=== PATIENT | female | born 1995 | race African-American/Black ===

== ENCOUNTER 2016-05-17 13:42 | Emergency (ER) | payer OTHER ==
--- NOTE | 2016-05-17 14:35 | PD ---
HPI Travel History International Travel<30 Days: No Contact w/Intl Traveler<30Days: No Known Affected Area: No History of Present Illness HPI This patient is a 21-year-old 1 para 0 her last menstrual period was sometime in December [address] her EDC at Sep [address] her at 23 weeks she presents with the chief complaint of general abdominal discomfort in the fundal area right and left lower quadrants low back no ruptured membranes no vaginal bleeding No care to date Has had nausea but no other complaints no urinary tract complaints Patient lives in the [place] area History Past Medical History Narrative Medical No known drug allergies no major medical problems Obstetric History Obstetric History First Past Surgical History Surgical History: No Previous Surgery Family History Narrative Family History Father with hypertension Social History Alcohol Use: No Tobacco Use: No Substance Abuse: No Allergies-Medications (Allergen,Severity, Reaction): Coded Allergies: No Known Allergies (Unverified , 07/13/15) Home Meds Active Scripts Cephalexin (Keflex)500 Mg [id number] Mg PO Q8H #21 CAP Ref 0 Prov:Joanna Salguero MD R1 05/17/16 Review of Systems Gastrointestinal: Abdominal Pain Physical Exam Narrative GENERAL: Well-nourished, well-developed patient. Alert oriented 3 and cooperative in no acute distress SKIN: Warm and dry. HEAD: Normocephalic and atraumatic. EYES: No scleral icterus. No injection or drainage. Conjunctiva are pink sclerae are clear ENT: No nasal drainage noted. Mucous membranes pink. Airway patent. NECK: Supple, trachea midline. No JVD. CARDIOVASCULAR: Regular rate and rhythm without murmurs, gallops, or rubs. RESPIRATORY: Breath sounds equal bilaterally. No accessory muscle use. ABDOMEN/GI: Gravid fundus is measuring close to 37 cm no palpable contractions Gravid to [-] weeks size 37 weeks by Fundal Height: [-] GENITOURINARY: Pelvic exam is deferred until an ultrasound can be done(vaginal exam done after ultrasound) External Genitalia: intact and normal in appearance BUS glands: [-] Cervix: [-] Posterior firm Dilatation: [-] Closed Effacement: [-] 0 Station: [-] High Presentation: [-] Vertex on ultrasound Membranes: [intact Uterine Contractions: [-]0 FHT's: Category: [-] 1 Baseline: [-] 150 Reactive: [-] + Variability: [-] Moderate Decels: [-] No drea decelerations seen not on the monitor very long EXTREMITIES: No cyanosis or edema. 2+ reflexes NEUROLOGICAL: Awake and alert. Motor and sensory grossly within normal limits. Five out of 5 muscle strength in all muscle groups. Normal speech. Data Data Vital Signs Reviewed: Yes (blood pressure 117/64 pulse is 94 she is afebrile) Orders Vital Signs (Adult) .ON ADMISSION (05/17/16 14:25) ^ Labor Status (05/17/16 14:25) Urinalysis - C+S If Indicated (05/17/16 14:25) ^ Hydration (05/17/16 14:25) MDM Medical Record Reviewed: No (no records available no care) Interpretation(s) 21-year-old at 3637 weeks by size No care Generalized abdominal discomfort Narrative Course / MDM Urinalysis indicates urinary tract infection culture is pending Ultrasound is done gestational age is 29 weeks and 5 days with JORDY of July 28, 2016 amniotic fluid index is 16.7 it's a vertex presentation estimated weight is 3 lbs. 5 oz. equaling 1517 g Placenta is anterior grade 1-2 no evidence of placenta previa Will begin an IV normal saline and give 1 g of Rocephin We'll then discharge patient home on Keflex 500 mg by mouth 3 times a day for 7 days She is to increase by mouth fluid hydration An appointment with [facility] Plan External monitoring Ultrasound for gestational age and anatomy scan biophysical profile labs to include GC Chlamydia group B strep Appointment with [facility] Reevaluation after labs and ultrasound done Will do pelvic exam at that time Diagnosis Diagnosis: Primary Impression: Urinary tract infection during in second trimester, antepartum Additional Impressions: No care in current Qualified Code: O09.32 - No care in current , second trimester 29 weeks gestation of Disposition: DISCHARGE HOME Condition: Stable Scripts Cephalexin (Keflex)500 Mg [id number] Mg PO Q8H #21 CAP Ref 0 Prov:Joanna Salguero MD R1 05/17/16 Ashley Ridley MD May 17, 2016 14:35
[2016-05-17 15:46] LABS: BACTERIA, URINE MANY /hpf; BLOOD, URINE NEG (NEG); CALCIUM OXALATE CRYSTALS,URINE MOD /hpf; COMMENT (UR) CULTURE INDICATED; CULTURE IF INDICATED CULTURE INDICATED; GLUCOSE,URINE NEG (NEG); KETONE, URINE NEG (NEG); MUCUS URINE MANY /lpf (OCC); SQUAMOUS EPITHELIAL CELL URINE 8 /hpf (0-5); URINE COLOR YELLOW (YELLW/STRAW)
[2016-05-17 15:49] LABS: NITRITE,URINE POS (NEG)
[2016-05-17 16:02] LABS: AMPHETAMINE, URINE NEG (NEG); BARBITURATES, URINE NEG (NEG); COCAINE, URINE NEG (NEG)
[2016-05-17] MEDS ORDERED: CEPH-460 PO (16:04)
[2016-05-17] MEDS ORDERED: LACTATED RINGER'S 1000 ML INJ 1,000 ML IV SCH (16:21)
[2016-05-17 16:29] LABS: BASOPHIL % 0.4 % (0.0-2.0); EOSINOPHIL # 0.1 TH/MM3 (0-0.4); EOSINOPHIL % 0.9 % (0.0-4.0); HEMATOCRIT 30.7 % (35.0-46.0); HEMO FLAGS DIFF FINAL; LYMPHOCYTE # 1.6 TH/MM3 (1.0-4.8); MEAN CELL VOLUME 83.9 FL (80.0-100.0); MEAN CORPUSCULAR HEMOGLOBIN 26.9 PG (27.0-34.0); MONO % 9.9 % (0.0-8.0); NEUT % 73.8 % (16.0-70.0); PLATELET COUNT 294 TH/MM3 (150-450); RED BLOOD COUNT 3.66 MIL/MM3 (4.00-5.30); RED CELL DISTRIBUTION WIDTH 12.7 % (11.6-17.2); WHITE BLOOD COUNT 10.9 TH/MM3 (4.0-11.0)
[2016-05-17 17:00] LABS: RUBELLA IGG ANTIBODY 73.1 IU/mL (10.0-500.0); RUBELLA STATUS IMMUNE (IMMUNE)
[2016-05-17] MEDS ORDERED: cefTRIAXone INJ 1,000 MG in SODIUM CHLORIDE 0.9% INJ 100 ML IV ONE (17:30)
[2016-05-17 21:52] LABS: CHLAMYDIA PCR NOT DETECTED (NOT DETECT); NEISSERIA PCR NOT DETECTED (NOT DETECT)
[2016-05-18 09:46] LABS: RAPID PLASMA REAGIN SCREEN NON-REACTIVE (NON-REACTVE)
[2016-05-22 11:36] LABS: BATH SALTS (MDPV) UR NEG (NEG); ECSTASY (MDMA) UR NEG (NEG); HEROIN (6-ACETYLMORPHINE) UR NEG (NEG); K2 SPICE UR NEG (NEG); OBMETHADONE UR NEG (NEG); OXYCODONE (PERCODAN) NEG (NEG); PHENCYCLIDINE URINE NEG (NEG)
[2016-06-14] MEDS ORDERED: TERC20CR VAGINAL ×2 (11:38→13:13)
[2016-06-14] MEDS ORDERED: PREN1PAK PO ×3 (11:38→16:36)
[2016-06-19] MEDS ORDERED: MACR100C2 PO (11:03)
[2016-06-19] MEDS ORDERED: FERR325T72 PO (11:03)
[2016-06-28] MEDS ORDERED: PREN1PAK PO (15:50)
[2016-06-28] MEDS ORDERED: FERR325T72 PO (15:50)
[2016-06-28] MEDS ORDERED: BACT800T5 PO (15:51)
[2016-06-28] MEDS ORDERED: FERRTAB2 PO (16:08)
[2016-07-05] MEDS ORDERED: CEPH-460 PO (14:41)
[2016-07-12] MEDS ORDERED: TERC20CR VAGINAL (14:29)
== END 2016-05-17 17:21 | disposition home or self-care (01) ==
LOC: HOBED 13:42
DX: O23.32 Infections of other parts of urinary tract in pregnancy, second trimester (principal); Z3A.23 23 weeks gestation of pregnancy
CPT/HCPCS: 36415; 76805; 76815; 80074; 80307; 81001; 85025; 86592; 86703; 86762; 86850; 86900; 86901; 87077; 87081; 87086; 87186; 87491; 87591; 96365; 99284; G0481; J0696; J7120

== ENCOUNTER → 2016-07-05 | Outpatient (CLI) | payer OTHER ==
[~2016-07-05] MED LIST: BACT800T5 PO; CEPH-460 PO; FERR325T PO; FERRTAB2 PO; IBUP-232 PO; MACR100C2 PO; OXYC1TAB63 PO; PERI8.6T PO; PREN1PAK PO; TERC20CR VAGINAL
[2016-07-05 14:30] LABS: FREE T4 0.91 NG/DL (0.76-1.46)
== END ==
LOC: CLAB 13:34
DX: O99.281 Endocrine, nutritional and metabolic diseases complicating pregnancy, first trimester (principal); Z13.89 Encounter for screening for other disorder
CPT/HCPCS: 36415; 84439; 84443

== ENCOUNTER 2016-08-03 22:14 | Inpatient (IN) | payer OTHER ==
[~2016-08-03] VITALS: Ht 157.5 cm; Wt 80.7 kg
[~2016-08-03 22:14] MED LIST changes: -BACT800T5 PO; -CEPH-460 PO; -FERR325T PO; -IBUP-232 PO; -MACR100C2 PO; -OXYC1TAB63 PO; -PERI8.6T PO
[2016-08-04] VITALS (76 sets, daily range): BP systolic 103–171; BP diastolic 60–150; PULSE 63–235; RESP 16–20; TEMP 97.2–99; O2SAT 93–100
[2016-08-04 00:20] LABS: AUTOMATED NEUTROPHIL # 5.7 TH/MM3 (1.8-7.7); BASOPHIL # 0.1 TH/MM3 (0-0.2); BASOPHIL % 0.7 % (0.0-2.0); EOSINOPHIL # 0.1 TH/MM3 (0-0.4); EOSINOPHIL % 1.2 % (0.0-4.0); HEMATOCRIT 32.8 % (35.0-46.0); HEMO FLAGS DIFF FINAL; LYMPH % 20.5 % (9.0-44.0); LYMPHOCYTE # 1.7 TH/MM3 (1.0-4.8); MEAN CELL VOLUME 83.3 FL (80.0-100.0); MEAN CORPUSCULAR HEMOGLOBIN 27.8 PG (27.0-34.0); MEAN CORPUSCULAR HGB CONC 33.4 % (32.0-36.0); MONO % 10.4 % (0.0-8.0); NEUT % 67.2 % (16.0-70.0); PLATELET COUNT 222 TH/MM3 (150-450); RED BLOOD COUNT 3.93 MIL/MM3 (4.00-5.30); RED CELL DISTRIBUTION WIDTH 14.4 % (11.6-17.2); WHITE BLOOD COUNT 8.5 TH/MM3 (4.0-11.0)
[2016-08-04 00:22] LABS: BLOOD, URINE NEG (NEG); GLUCOSE,URINE NEG (NEG); KETONE, URINE NEG (NEG); NITRITE,URINE NEG (NEG); PH, URINE 6.5 (5.0-8.5); SQUAMOUS EPITHELIAL CELL URINE 1 /hpf (0-5); URINE COLOR YELLOW (YELLW/STRAW)
[2016-08-04 00:26] LABS: COMMENT (UR) CULT NOT INDICATED; CULTURE IF INDICATED CULT NOT INDICATED
[2016-08-04] MEDS ORDERED: LIDOCAINE HCL 1% 50 ML VIAL I-DERMAL PRN (00:30)
[2016-08-04] MEDS ORDERED: OXYTOCIN 30 UNITS 500ML PREMIX IV ONE (00:30)
[2016-08-04] MEDS ORDERED: ONDANSETRON HCL 4 MG/2 ML VIAL IV PRN (00:30)
[2016-08-04] MEDS ORDERED: NS 500 ML BOLUS IV PRN (00:30)
[2016-08-04] MEDS ORDERED: CITRIC ACID-SODIUM CITRATE LIQ 30 ML UDC PO SCH (00:30)
[2016-08-04] MEDS ORDERED: DINOPROSTONE 10 MG VAG INSERT VAGINAL ONE (00:30)
[2016-08-04] MEDS ORDERED: LACTATED RINGER'S 1000 ML BOLUS IV PRN (00:30)
[2016-08-04] MEDS ORDERED: MINERAL OIL 10 ML VIAL TOPICAL PRN (00:30)
[2016-08-04] MEDS ORDERED: LIDOCAINE HCL 1% 50 ML VIAL INFIL PRN (00:30)
[2016-08-04] MEDS ORDERED: NS 1000 ML IV PRN (00:30)
--- NOTE | 2016-08-04 00:30 | HHI.HP ---
HPI Chief Complaint Induction of labor Date Seen: Aug 04, 2016 (Peng Garcia MD R2) Travel History International Travel<30 Days: No Contact w/Intl Traveler<30Days: No (Peng Garcia MD R2) History of Present Illness HPI Ms. Iglesias is a 21 yo G1 at 41 weeks GA (JORDY 07/28/2016) patient of [facility] who presents for induction of labor. Patient reports that she is doing well at this time. Patient states that yesterday she felt that she was having increased vaginal discharge which was more suggestive of liquid consistency and more prominent than previously, making her think that she may have ruptured her membranes. Patient denies vaginal bleeding. Normal movement. Patient denies any abdominal pain, but states that she occasionally feels mild contractions. Patient reports chronic shortness of breath during which is not worse than usual; she does not report headaches, visual changes, chest pain, dysuria, leg swelling, or other symptoms. Per review of records, patient had ultrasound 07/31 with estimated weight approximately 4000 g. No placental abnormalities or amniotic fluid reported. labs suggestive of anemia (hemoglobin 9.9). Patient had several UTIs during and vaginal yeast infection following antibiotic treatment. Patient also reportedly had TSH abnormality; follow-up labs not in EMR. GBS negative. Para: 0 : 1 (Peng Garcia MD R2) History Past Medical History Medical History: Denies Significant Hx (Peng Garcia MD R2) Obstetric History Obstetric History G1 (Peng Garcia MD R2) Past Surgical History Surgical History: No Previous Surgery (Peng Garcia MD R2) Family History Narrative Family History HTN (Peng Garcia MD R2) Social History Alcohol Use: No Tobacco Use: No Substance Abuse: No (Peng Garcia MD R2) Allergies-Medications (Allergen,Severity, Reaction): Coded Allergies: No Known Allergies (Unverified , 08/04/16) Home Meds Active Scripts W/O Vit A W/ Fe Carbo Pack (Citranatal Assure Pack)35-1 & 300 Mg Pack1 Ea PO DAILY #30 PACK Ref 0 30 day supply. Prov:Ashley Suresh CNM COTTAGE ATTENDANT 06/28/16 Discontinued Scripts Terconazole Vaginal Cream (Terazol 3 Vaginal Cream)0.8 % Cream1 Appl VAGINAL HS #20 GM Ref 0 1 applicatorful intravaginally x 3 nights Prov:Ashley Suresh CNM COTTAGE ATTENDANT 07/12/16 Multi-Vit/Iron-Folic Dubi-R03-Jmi C (Ferralet)90-1-0.012-120 mg Tab1 Tab PO DAILY #30 BOTTLE Ref 3 Prov:Ashley Suresh CNM COTTAGE ATTENDANT 06/28/16 Review of Systems General / Constitutional: No: Fever, Chills Eyes: No: Blurred Vision HENT: No: Headaches Cardiovascular: No: Chest Pain or Discomfort Respiratory: Short of Breath (occasional, chronic during ) Gastrointestinal: No: Nausea, Vomiting, Abdominal Pain Genitourinary: No: Urgency, Dysuria (Peng Garcia MD R2) Physical Exam BP 130/83 HR 90 T 98.1 RR 18 Narrative GENERAL: Well-nourished, well-developed patient. SKIN: Warm and dry. HEAD: Normocephalic and atraumatic. EYES: No scleral icterus. No injection or drainage. ENT: No nasal drainage noted. Mucous membranes pink. Airway patent. NECK: Supple, trachea midline. No JVD. CARDIOVASCULAR: Regular rate and rhythm without murmurs. RESPIRATORY:CTAB, normal rate ABDOMEN/GI: Abdomen soft, non-tender, bowel sounds present, no rebound, no guarding Gravid EXTREMITIES: No cyanosis or edema. NEUROLOGICAL: Awake and alert. Motor and sensory function grossly within normal limits. GENITOURINARY: External Genitalia: intact and normal in appearance Cervix: Dilatation: 1 Effacement: 40% Station: -2 Presentation: V Membranes: Intact Uterine Contractions: Y, q2-3 min FHT's: Category: 1 Baseline: 130 Reactive: Y Variability: Mod Decels: None (Peng Garcia MD R2) BP: 130/83 Narrative Abd soft NT, Gravid EFW by recent US in clinic 3900g 140/-2 TOCO irregular UC, very mild to palpation and patient does not feel (Vikki Pratt MD) Data Data Vital Signs Reviewed: Yes Orders Admit To Inpatient (08/04/16 ) Code Status (08/04/16 00:08) Vital Signs (Adult) .Per protocol (08/04/16 00:08) Activity Oob Ad Olivia (08/04/16 00:08) Heart (08/04/16 00:08) Amnioinfusion (08/04/16 00:08) Urinary Catheter Management .ONCE (08/04/16 00:08) Diet Liquid (08/04/16 Breakfast) Complete Blood Count With Diff (08/04/16 00:08) Hold Clot (08/04/16 00:08) Abo/Rh Blood Type (08/04/16 00:08) Urinalysis - C+S If Indicated (08/04/16 00:08) Resp Oxygen Non Rebreathe Mask (08/04/16 ) ^ Epidural / Intrathecal Infus (08/04/16 00:08) Lactated Ringer's 1000 Ml Inj (Lr 1000 M (08/04/16 00:30) Lactated Ringer's 1000 Ml Inj (Lr 1000 M (08/04/16 00:30) Sodium Chlorid 0.9% 500 Ml Inj (Ns 500 M (08/04/16 00:30) Sodium Chlor 0.9% 1000 Ml Inj (Ns 1000 M (08/04/16 00:30) Lidocaine 1% Inj (50 Ml) (Xylocaine 1% I (08/04/16 00:30) Citric Acid-Sodium Citrate Liq (Bicitra (08/04/16 00:30) Ondansetron Inj (Zofran Inj) (08/04/16 00:30) Fentanyl Inj (Fentanyl Inj) (08/04/16 00:30) Fentanyl Inj (Fentanyl Inj) (08/04/16 00:30) Oxytocin 30 Units-500ml Premix (Pitocin (08/04/16 00:30) Lidocaine 1% Inj (50 Ml) (Xylocaine 1% I (08/04/16 00:30) Light Mineral Oil (Muri-Lube Oil) (08/04/16 00:30) Labs Laboratory Tests Test 08/03/16 23:30 White Blood Count 8.5 Red Blood Count 3.93 Hemoglobin 10.9 Hematocrit 32.8 Mean Corpuscular Volume 83.3 Mean Corpuscular Hemoglobin 27.8 Mean Corpuscular Hemoglobin 33.4 Concent Red Cell Distribution Width 14.4 Platelet Count 222 Mean Platelet Volume 11.1 Neutrophils (%) (Auto) 67.2 Lymphocytes (%) (Auto) 20.5 Monocytes (%) (Auto) 10.4 Eosinophils (%) (Auto) 1.2 Basophils (%) (Auto) 0.7 Neutrophils # (Auto) 5.7 Lymphocytes # (Auto) 1.7 Monocytes # (Auto) 0.9 Eosinophils # (Auto) 0.1 Basophils # (Auto) 0.1 CBC Comment DIFF FINAL Differential Comment (Peng Garcia MD R2) Vital Signs Reviewed: Yes (Vikki Pratt MD) Assessment/Plan Problem List: (1) Post term at 41 weeks gestation Assessment and Plan 21 yo G1 at 41 weeks GA (JORDY 07/28/2016) patient of [facility] who presents for induction of labor Cervix 1/40%/-2 -Cat 1 rhythm -GBS- -Nonpainful, frequent contractions -Patient concern for possible ROM Plan: We'll check shoulder to assess for possible ROM Continue monitoring We'll plan to admit for labor We'll check UA, CBC, blood typing Continue EFM Continue to monitor for cervical effacement (Peng Garcia MD R2) Attending Attestation 41 weeks IOL for dates CAT I FHT Needs cervical ripening, reviewed Cervidil with patient (Vikki Pratt MD) Peng Garcia MD R2 Aug 04, 2016 00:30 Vikki Pratt MD Aug 04, 2016 01:09
[2016-08-04] MEDS: LACTATED RINGER'S 1000 ML IV SCH ×3 (05:43→09:13)
[2016-08-04] MEDS ORDERED: OXYTOCIN 30 UNITS-500ML PREMIX 500 ML IV SCH (08:15)
--- NOTE | 2016-08-04 09:24 | PD.LABORPN ---
Subjective Subjective comfortable, feels some cramping. Cervidil fell out in toilet this AM @ 8:30 Objective Vital Signs Vital Signs Date Time Temp Pulse Resp B/P Pulse Ox O2 Delivery O2 Flow Rate FiO2 08/04/16 09:00 86 103/67 08/04/16 08:46 79 119/88 08/04/16 08:31 78 116/77 08/04/16 08:30 97.5 18 08/04/16 08:21 82 124/89 08/04/16 07:00 63 133/80 08/04/16 06:15 18 08/04/16 05:30 18 08/04/16 05:00 18 08/04/16 03:35 97.8 18 08/04/16 03:34 79 128/80 Objective FHT CAT I 2-3cm/60/-2 Assessment/Plan Problem List: (1) Post term at 41 weeks gestation Assessment and Plan IOL @ 41 weeks for dates s/p Cervidil, pitocin augmentation AROM when appropriate Vikki Pratt MD Aug 04, 2016 09:24
[2016-08-04] MEDS ORDERED: fentaNYL 2MCG-BUPIV 0.125% INJ 100 ML ONE ×2 (10:14→18:32)
[2016-08-04] MEDS ORDERED: ePHEDrine/NS 25 MG/5 ML SYR ONE (10:35)
--- NOTE | 2016-08-04 10:45 | PD.LABORPN ---
Subjective Subjective Pt doing well in general. SROM and pain intensified. Would like the epidural now. Objective Vital Signs Vital Signs Date Time Temp Pulse Resp B/P Pulse Ox O2 Delivery O2 Flow Rate FiO2 08/04/16 10:16 88 129/90 08/04/16 10:00 84 107/62 08/04/16 09:45 82 112/71 08/04/16 09:30 83 106/60 08/04/16 09:16 75 122/62 08/04/16 09:00 86 103/67 08/04/16 08:46 79 119/88 08/04/16 08:31 78 116/77 08/04/16 08:30 97.5 18 08/04/16 08:21 82 124/89 08/04/16 07:00 63 133/80 08/04/16 06:15 18 08/04/16 05:30 18 08/04/16 05:00 18 08/04/16 03:35 97.8 18 08/04/16 03:34 79 128/80 Objective FHT: category I Cervical exam: /-2 Assessment/Plan Problem List: (1) Post term at 41 weeks gestation Assessment and Plan Intrauterine -SROM -FHT category I -Cervical exam: /-2 -Contractions q1-2 minutes -On Pitocin -Plan for epidural -Expect vaginal delivery Audrey Durbin MD R1 Aug 04, 2016 10:45
[2016-08-04 10:56] LABS: AMPHETAMINE, URINE NEG (NEG); BARBITURATES, URINE NEG (NEG); COCAINE, URINE NEG (NEG)
--- NOTE | 2016-08-04 13:29 | PD.LABORPN ---
Subjective Subjective Pt doing ok. Feels better with epidural Objective Vital Signs Vital Signs Date Time Temp Pulse Resp B/P Pulse Ox O2 Delivery O2 Flow Rate FiO2 08/04/16 12:12 111/81 08/04/16 12:09 82 111/72 08/04/16 12:06 84 117/72 08/04/16 12:03 82 115/82 08/04/16 12:00 89 112/71 08/04/16 11:57 92 114/70 08/04/16 11:55 202 105/63 08/04/16 11:51 80 113/72 08/04/16 11:48 82 111/72 08/04/16 11:46 118 123/74 08/04/16 11:43 120 134/103 08/04/16 11:39 89 113/98 08/04/16 11:37 151 110/76 08/04/16 11:33 76 117/82 08/04/16 11:30 83 117/74 08/04/16 11:27 82 08/04/16 11:27 126/78 08/04/16 11:24 119/78 08/04/16 11:24 85 08/04/16 11:22 88 08/04/16 11:22 118/79 08/04/16 11:19 235 171/150 08/04/16 11:15 86 128/87 08/04/16 11:13 97.2 18 08/04/16 11:12 96 110/89 08/04/16 11:09 113 125/69 08/04/16 11:06 91 122/68 08/04/16 11:05 87 08/04/16 11:05 89 120/76 08/04/16 11:00 79 08/04/16 11:00 90 115/72 08/04/16 10:58 94 116/80 08/04/16 10:55 105 149/79 08/04/16 10:55 101 08/04/16 10:52 87 141/70 08/04/16 10:51 95 150/81 08/04/16 10:50 95 08/04/16 10:45 87 150/97 08/04/16 10:32 91 138/88 08/04/16 10:16 88 129/90 08/04/16 10:00 84 107/62 08/04/16 09:45 82 112/71 08/04/16 09:30 83 106/60 08/04/16 09:16 75 122/62 08/04/16 09:00 86 103/67 08/04/16 08:46 79 119/88 08/04/16 08:31 78 116/77 08/04/16 08:30 97.5 18 08/04/16 08:21 82 124/89 08/04/16 07:00 63 133/80 08/04/16 06:15 18 08/04/16 05:30 18 Objective FHT: category II - variable decelerations Cervical exam: Assessment/Plan Problem List: (1) Post term at 41 weeks gestation Assessment and Plan Intrauterine -SROM -FHT category II due to variable decels -Cervical exam: -Contractions q1 minute - tachysystole -Stop Pitocin -Epidural in place -Expect vaginal delivery Audrey Durbin MD R1 Aug 04, 2016 13:29
--- NOTE | 2016-08-04 18:12 | PD.LABORPN ---
Subjective Subjective Patient at C/C/0, slightly asynclitic, ROP. Good expulsion efforts Objective Vital Signs Vital Signs Date Time Temp Pulse Resp B/P Pulse Ox O2 Delivery O2 Flow Rate FiO2 08/04/16 16:45 97.5 08/04/16 16:00 92 127/75 08/04/16 15:40 18 08/04/16 15:30 102 129/82 08/04/16 15:00 89 131/94 08/04/16 14:30 96 133/101 08/04/16 14:00 94 113/71 08/04/16 13:45 97.8 20 08/04/16 13:42 105 122/96 08/04/16 12:12 111/81 08/04/16 12:09 82 111/72 08/04/16 12:06 84 117/72 08/04/16 12:03 82 115/82 08/04/16 12:00 89 112/71 08/04/16 11:57 92 114/70 08/04/16 11:55 202 105/63 08/04/16 11:51 80 113/72 08/04/16 11:48 82 111/72 08/04/16 11:46 118 123/74 08/04/16 11:43 120 134/103 08/04/16 11:39 89 113/98 08/04/16 11:37 151 110/76 08/04/16 11:33 76 117/82 08/04/16 11:30 83 117/74 08/04/16 11:27 82 08/04/16 11:27 126/78 08/04/16 11:24 119/78 08/04/16 11:24 85 08/04/16 11:22 88 08/04/16 11:22 118/79 08/04/16 11:19 235 171/150 08/04/16 11:15 86 128/87 08/04/16 11:13 97.2 18 08/04/16 11:12 96 110/89 08/04/16 11:09 113 125/69 08/04/16 11:06 91 122/68 08/04/16 11:05 87 08/04/16 11:05 89 120/76 08/04/16 11:00 79 08/04/16 11:00 90 115/72 08/04/16 10:58 94 116/80 08/04/16 10:55 105 149/79 08/04/16 10:55 101 08/04/16 10:52 87 141/70 08/04/16 10:51 95 150/81 08/04/16 10:50 95 08/04/16 10:45 87 150/97 08/04/16 10:32 91 138/88 08/04/16 10:16 88 129/90 Objective Pelvic Exam: Cervix: [-] Dilatation: [-] Effacement: [-] Station: [-] Presentation: [-] Membranes: [intact or ruptured] Uterine Contractions: [-] FHT's: Category: [1-] Baseline: [140-] Reactive: [-mod] Variability: [mod-] Decels: [occasional variable down to 120-] Assessment/Plan Problem List: (1) Post term at 41 weeks gestation Assessment and Plan Term Pushing efforts for 1 1/2 hours, ROP with asynclitism, Category 1 FHR tracing Tiffanie Rizzo MD Aug 04, 2016 18:12
--- NOTE | 2016-08-04 19:06 | HHI.PR ---
HAND SURGEON Note Note Patient evaluated for progress. After pushing for 2.5 hours head is now ROT, large caput with bony skull at 0 station. No further descent since my last evaluation Category 1 FHR tracing Plan to proceed to . Tiffanie Rizzo MD Aug 04, 2016 19:06
[2016-08-04] MEDS ORDERED: OXYTOCIN 10 UNIT/ML AMP ONE (19:13)
[2016-08-04] MEDS ORDERED: ceFAZolin INJ 1,000 MG VIAL ONE (19:13)
[2016-08-04] MEDS ORDERED: ceFAZolin 2 GM PREMIX 50 ML IV SCH (19:15)
[2016-08-04] MEDS ORDERED: EPIDURAL-DIPHENHYDRAMINE HCL 50 MG CAP PO PRN (19:55)
[2016-08-04] MEDS ORDERED: EPIDURAL-NO SYSTEMIC NARCOTICS PRN (19:55)
[2016-08-04] MEDS ORDERED: EPIDURAL-DO NOT ADMINISTER ANTICOAGULANTS PRN (19:55)
[2016-08-04] MEDS ORDERED: EPIDURAL-DIPHENHYDRAMINE HCL 50 MG/ML VIAL IV PUSH PRN (19:55)
[2016-08-04] MEDS ORDERED: EPIDURAL-NALOXONE HCL 0.4 MG/ML AMP IV PRN (19:55)
--- NOTE | 2016-08-04 20:11 | PD.OB.DELI ---
Procedure Note Section Procedure Pre Op Diagnosis: (1) Post term at 41 weeks gestation Post Op Diagnosis: Performed by Tiffanie Rizzo Procedure: Primary Low Transverse Sec Indication for delivery: Other (Persistent occiput presentation, failure to progress) Informed consent obtained: For anesthesia Confirmed correct: Patient, Procedure, Site, Time-out taken Anesthesia: Epidural Medication prior to procedure: Antacids, Antibiotics, IV Urinary catheter: To dependent drainage Sterile preparation: Duraprep Position: Supine with wedge to left side Operative Features Skin Incision: Pfannenstiel Uterine Incision: Low transverse w/knife / blunt ext Membranes Ruptured: Previously Presentation: Occiput posterior Time of : 19:42 Delivery of : Uneventful : Male One Minute : 9 Five Minute : 9 Weight: 8#6oz, 3810gms Status of infant: Viable Placenta delivered: Intact Medications: Oxytocin Estimated blood loss: 600 Procedure tolerated: Well Maternal Condition: Stable Condition: Stable Tiffanie Rizzo MD Aug 04, 2016 20:11
[2016-08-04] MEDS ORDERED: MORPHINE SULFATE PF 5 MG/10 ML VIAL ONE (20:14)
[2016-08-04] MEDS ORDERED: oxyCODONE/ACETAMINOPHEN 5 MG/325 MG TAB PO PRN (20:15)
[2016-08-04] MEDS ORDERED: ONDANSETRON HCL 4 MG/2 ML VIAL IV PUSH PRN (20:15)
[2016-08-04] MEDS ORDERED: SIMETHICONE 80 MG CHEWABLE TAB PO PRN (20:15)
[2016-08-04] MEDS ORDERED: OXYTOCIN 30 UNITS-500ML PREMIX 500 ML IV ONE (20:15)
[2016-08-04] MEDS ORDERED: SODIUM CHLORIDE 0.9% FLUSH 10 ML FLUSH IV FLUSH PRN (20:15)
[2016-08-04] MEDS ORDERED: fentaNYL CITRATE 250 MCG/5 ML AMP ONE (20:15)
[2016-08-04] MEDS ORDERED: SODIUM CHLORIDE 0.9% FLUSH 10 ML FLUSH IV FLUSH SCH (21:00)
[2016-08-04] MEDS ORDERED: AMMONIA AROMATIC INHALANT 0.33 ML ONE (22:35)
[2016-08-04] MEDS ORDERED: KETOROLAC TROMETHAMINE 30 MG/ML (IVP) VIAL IV PUSH ONE (23:30)
[2016-08-05 00:30] VITALS: BP 123/84; PULSE 90; RESP 18
[2016-08-05] MEDS ORDERED: LACTATED RINGER'S 1000 ML INJ 1,000 ML IV SCH (01:11)
[2016-08-05 03:00] VITALS: BP 138/90; PULSE 84; RESP 18; TEMP 98.8
[2016-08-05] MEDS ORDERED: OXYTOCIN 30 UNITS-500ML PREMIX 500 ML IV PRN (06:15)
[2016-08-05 06:38] LABS: AUTOMATED NEUTROPHIL # 12.1 TH/MM3 (1.8-7.7); BASOPHIL % 0.2 % (0.0-2.0); EOSINOPHIL % 0.1 % (0.0-4.0); HEMATOCRIT 27.1 % (35.0-46.0); HEMO FLAGS DIFF FINAL; LYMPH % 8.7 % (9.0-44.0); LYMPHOCYTE # 1.2 TH/MM3 (1.0-4.8); MEAN CELL VOLUME 84.6 FL (80.0-100.0); MEAN CORPUSCULAR HEMOGLOBIN 26.9 PG (27.0-34.0); MEAN CORPUSCULAR HGB CONC 31.8 % (32.0-36.0); MONO % 5.7 % (0.0-8.0); NEUT % 85.3 % (16.0-70.0); PLATELET COUNT 150 TH/MM3 (150-450); RED BLOOD COUNT 3.21 MIL/MM3 (4.00-5.30); RED CELL DISTRIBUTION WIDTH 14.3 % (11.6-17.2); WHITE BLOOD COUNT 14.2 TH/MM3 (4.0-11.0)
--- NOTE | 2016-08-05 06:46 | PD.LABORPN ---
Objective Vital Signs Vital Signs Date Time Temp Pulse Resp B/P Pulse Ox O2 Delivery O2 Flow Rate FiO2 08/05/16 03:00 98.8 08/05/16 03:00 84 18 138/90 08/05/16 00:30 90 18 123/84 08/04/16 23:00 97.6 93 18 148/89 97 Objective Pelvic Exam: Cervix: [-] Dilatation: [-] Effacement: [-] Station: [-] Presentation: [-] Membranes: [intact or ruptured] Uterine Contractions: [-] FHT's: Category: [-] Baseline: [-] Reactive: [-] Variability: [-] Decels: [-] Assessment/Plan Problem List: (1) Post term at 41 weeks gestation Reshma Jones MD R2 Aug 05, 2016 06:46
--- NOTE | 2016-08-05 06:58 | HHI.OB ---
Subjective Post Operative Day: 1 Remarks 21 year old female s/p due to failure to progress at 41/0 wks gestation, POD 1. AFVSS but BP is slightly elevated with a systolic around 140s. Patient reports she is feeling well. Bleeding is decreasing and pain is well-controlled. She is breast feeding and bonding well with baby. Ambulating without difficulties with assistance. She is tolerating a liquid diet without nausea or vomiting. Continues to have a Graham in place. Denies chest pain, shortness of breath, or calf pain. (Reshma Jones MD R2) Objective Vitals/I&O Vital Signs Date Time Temp Pulse Resp B/P Pulse Ox O2 Delivery O2 Flow Rate FiO2 08/05/16 03:00 98.8 08/05/16 03:00 84 18 138/90 08/05/16 00:30 90 18 123/84 08/04/16 23:00 97.6 93 18 148/89 97 08/04/16 21:45 99.0 08/04/16 21:30 99.0 08/04/16 21:29 97 18 100 08/04/16 21:28 133/83 08/04/16 21:15 88 18 08/04/16 21:15 131/85 98 08/04/16 21:00 99 18 122/72 99 08/04/16 20:44 114/73 08/04/16 20:40 18 08/04/16 20:39 104 99 08/04/16 20:30 104 16 08/04/16 20:26 116/76 96 08/04/16 20:13 98.6 08/04/16 20:13 93 08/04/16 20:12 109 18 08/04/16 20:12 112/60 08/04/16 18:44 98.4 08/04/16 17:00 105 119/77 08/04/16 16:45 17 08/04/16 16:45 97.5 08/04/16 16:31 102 124/81 08/04/16 16:00 92 127/75 08/04/16 15:40 18 08/04/16 15:30 102 129/82 08/04/16 15:00 89 131/94 08/04/16 14:30 96 133/101 08/04/16 14:00 94 113/71 08/04/16 13:45 97.8 20 08/04/16 13:42 105 122/96 08/04/16 12:12 111/81 08/04/16 12:09 82 111/72 08/04/16 12:06 84 117/72 08/04/16 12:03 82 115/82 08/04/16 12:00 89 112/71 08/04/16 11:57 92 114/70 08/04/16 11:55 202 105/63 08/04/16 11:51 80 113/72 08/04/16 11:48 82 111/72 08/04/16 11:46 118 123/74 08/04/16 11:43 120 134/103 08/04/16 11:39 89 113/98 08/04/16 11:37 151 110/76 08/04/16 11:33 76 117/82 08/04/16 11:30 83 117/74 08/04/16 11:27 82 08/04/16 11:27 126/78 08/04/16 11:24 119/78 08/04/16 11:24 85 08/04/16 11:22 88 08/04/16 11:22 118/79 08/04/16 11:19 235 171/150 08/04/16 11:15 86 128/87 08/04/16 11:13 97.2 18 08/04/16 11:12 96 110/89 08/04/16 11:09 113 125/69 08/04/16 11:06 91 122/68 08/04/16 11:05 87 08/04/16 11:05 89 120/76 08/04/16 11:00 79 08/04/16 11:00 90 115/72 08/04/16 10:58 94 116/80 08/04/16 10:55 105 149/79 08/04/16 10:55 101 08/04/16 10:52 87 141/70 08/04/16 10:51 95 150/81 08/04/16 10:50 95 08/04/16 10:45 87 150/97 08/04/16 10:32 91 138/88 08/04/16 10:16 88 129/90 08/04/16 10:00 84 107/62 08/04/16 09:45 82 112/71 08/04/16 09:30 83 106/60 08/04/16 09:16 75 122/62 08/04/16 09:00 86 103/67 08/04/16 08:46 79 119/88 08/04/16 08:31 78 116/77 08/04/16 08:30 97.5 18 08/04/16 08:21 82 124/89 08/04/16 07:00 63 133/80 (Reshma Jones MD R2) Result Diagram: 08/05/16 0604 Objective Remarks GENERAL: Well-nourished, well-developed patient. CARDIOVASCULAR: Regular rate and rhythm without murmurs, gallops, or rubs. RESPIRATORY: Breath sounds equal bilaterally. No accessory muscle use. ABDOMEN/GI: Abdomen soft, non-tender. Incision: Bandage Clean, dry and intact. Fundus: Firm, non-tender slightly above umbilicus. GENITOURINARY: Light to moderate bleeding. EXTREMITIES: No cyanosis or edema, non-tender, without signs of DVT. Medications and IVs Current Medications Medications (Trade) Dose Ordered Sig/[place] Route Start Time Stop Time Status Last Admin (fentaNYL INJ) 50 mcg Q1H PRN IV PUSH 08/04/16 00:30 08/04/16 07:25 (fentaNYL INJ) 100 mcg Q1H PRN IV PUSH 08/04/16 00:30 08/04/16 09:14 Mineral Oil 10 ml 10 ml UNSCH PRN TOPICAL 08/04/16 00:30 Oxytocin 500 ml @ 0 mls/hr TITRATE IV 08/04/16 08:15 08/04/16 09:13 (Lr 1000 ml Inj) 1,000 ml @ 100 mls/hr Q10H IV 08/05/16 01:11 08/05/16 21:10 (NS Flush) 2 ml BID IV FLUSH 08/04/16 21:00 (NS Flush) 2 ml UNSCH PRN IV FLUSH 08/04/16 20:15 (Mylicon Chew) 80 mg QID PRN PO 08/04/16 20:15 (Motrin) 600 mg Q6H PRN PO 08/04/16 20:15 (Percocet 5-325 Mg) 1 tab Q4H PRN PO 08/04/16 20:15 (Percocet 5-325 Mg) 2 tab Q4H PRN PO 08/04/16 20:15 (M-M-R Ii Inj) 0.5 ml ONCE ONCE SQ 08/05/16 16:00 08/05/16 16:01 (Boostrix Inj) 0.5 ml ONCE ONCE IM 08/05/16 16:00 08/05/16 16:01 (Zofran Inj) 4 mg Q6H PRN IV PUSH 08/04/16 20:15 Miscellaneous Information NO SYSTEMIC NARCOTICS TO BE GIVEN FO... UNSCH PRN .XX 08/04/16 19:55 08/05/16 19:54 (Narcan Inj) 0.4 mg UNSCH PRN IV 08/04/16 19:55 08/05/16 19:54 (Benadryl Inj) 25 mg Q6H PRN IV PUSH 08/04/16 19:55 08/05/16 19:54 (Benadryl) 50 mg Q6H PRN PO 08/04/16 19:55 08/05/16 19:54 Miscellaneous Information ALL NURSING DEPARTMENTS UNSCH PRN .XX 08/04/16 19:55 08/05/16 19:54 (Reshma Jones MD R2) Assessment/Plan Problem List: (1) Post term at 41 weeks gestation Assessment and Plan 21 yo female s/p due to failure to progress POD 1. - AFVSS * BP slightly elevated, continue to monitor closely - Continue routine care * Drop in hemoglobin from 10.9 to 8.6. * Repeat H&H tomorrow - Motrin and Percocet PRN pain - Encourage OOB - Pelvic rest x 6 wks. Will need a f/u appt in 1wk for incision check. - Contraception: Would like Depo-Provera. Will plan to give tomorrow. No history of migraines. - Recommend post follow up in 1 wk - Anticipate D/C in 1-[address] Rizzo (Reshma Jones MD R2) Collaborating MD Comments PPD 1, Will watch BP closely due to elevation. Discussed with resident. (Tiffanie Rizzo MD) Reshma Jones MD R2 Aug 05, 2016 06:58 Tiffanie Rizzo MD Aug 05, 2016 08:12
[2016-08-05 07:42] VITALS: BP 119/75; PULSE 97; RESP 16; TEMP 99.5
[2016-08-05] MEDS: oxyCODONE/ACETAMINOPHEN 5 MG/325 MG TAB PO PRN ×3 (10:07→20:08)
[2016-08-05] MEDS: IBUPROFEN 600 MG TAB PO PRN ×2 (10:08→20:08)
[2016-08-05 14:00] VITALS: BP 101/70; PULSE 102; RESP 18; TEMP 98.5
[2016-08-05] MEDS ORDERED: MEASLES, MUMPS, RUBELLA VACCINE 0.5 ML VIAL SQ ONE (16:00)
[2016-08-05] MEDS ORDERED: DIPHTH/TETANUS/ACEL PERTUSSIS (BOOSTER) 0.5 ML VIAL/PFS IM ONE (16:00)
[2016-08-05 20:00] VITALS: BP 116/86; PULSE 100; RESP 16; TEMP 97.7
[2016-08-06] MEDS: IBUPROFEN 600 MG TAB PO PRN ×3 (02:01→18:04)
[2016-08-06] MEDS: oxyCODONE/ACETAMINOPHEN 5 MG/325 MG TAB PO PRN ×4 (02:02→22:18)
[2016-08-06 06:40] LABS: HEMATOCRIT 25.6 % (35.0-46.0); MEAN CELL VOLUME 84.1 FL (80.0-100.0); MEAN CORPUSCULAR HEMOGLOBIN 26.9 PG (27.0-34.0); PLATELET COUNT 162 TH/MM3 (150-450); RED BLOOD COUNT 3.05 MIL/MM3 (4.00-5.30); RED CELL DISTRIBUTION WIDTH 14.7 % (11.6-17.2); REVIEW FLAG FINAL; WHITE BLOOD COUNT 22.2 TH/MM3 (4.0-11.0)
[2016-08-06 07:27] VITALS: BP 126/81; PULSE 105; RESP 18; TEMP 98.7
[2016-08-06] MEDS ORDERED: medroxyPROGESTERone ACETATE SUSP 150 MG/ML SYRINGE IM ONE (09:00)
--- NOTE | 2016-08-06 09:20 | HHI.OB ---
Subjective Post Operative Day: 2 Remarks Feeling well. Reports passing large clots POD #1, but these have subsided. Denies fevers or chills. Ambulating, and eating without difficulty. Wants to stay another day to recuperate and monitor pain / bleeding. Objective Vitals/I&O Vital Signs Date Time Temp Pulse Resp B/P Pulse Ox O2 Delivery O2 Flow Rate FiO2 08/06/16 07:27 98.7 105 18 126/81 08/05/16 20:00 97.7 100 16 116/86 08/05/16 14:00 98.5 08/05/16 14:00 102 18 101/70 Result Diagram: 08/06/16 0606 Objective Remarks GENERAL: Well-nourished, well-developed patient. CARDIOVASCULAR: Regular rate and rhythm without murmurs, gallops, or rubs. RESPIRATORY: Breath sounds equal bilaterally. No accessory muscle use. ABDOMEN/GI: Abdomen soft, non-tender. Incision: Bandage Clean, dry and intact. Fundus: Firm, non-tender slightly above umbilicus. GENITOURINARY: Light to moderate bleeding. EXTREMITIES: No cyanosis or edema, non-tender, without signs of DVT. Medications and IVs Current Medications Medications (Trade) Dose Ordered Sig/[place] Route Start Time Stop Time Status Last Admin (fentaNYL INJ) 50 mcg Q1H PRN IV PUSH 08/04/16 00:30 08/04/16 07:25 (fentaNYL INJ) 100 mcg Q1H PRN IV PUSH 08/04/16 00:30 08/04/16 09:14 Mineral Oil 10 ml 10 ml UNSCH PRN TOPICAL 08/04/16 00:30 (Pitocin 30 Units-NS 500 ml Premix) 500 ml @ 0 mls/hr TITRATE IV 08/04/16 08:15 08/04/16 09:13 (NS Flush) 2 ml BID IV FLUSH 08/04/16 21:00 (NS Flush) 2 ml UNSCH PRN IV FLUSH 08/04/16 20:15 (Mylicon Chew) 80 mg QID PRN PO 08/04/16 20:15 (Motrin) 600 mg Q6H PRN PO 08/04/16 20:15 08/06/16 08:31 (Percocet 5-325 Mg) 1 tab Q4H PRN PO 08/04/16 20:15 (Percocet 5-325 Mg) 2 tab Q4H PRN PO 08/04/16 20:15 08/06/16 07:20 (Zofran Inj) 4 mg Q6H PRN IV PUSH 08/04/16 20:15 Assessment/Plan Problem List: (1) Post term at 41 weeks gestation Assessment and Plan 21 yo female s/p due to failure to progress POD 1. - AFVSS * BP at goal - Continue routine care * Drop in hemoglobin from 10.9 --> 8.6 --> 8.2. Stable x 24 hours. Asymptomatic. - Motrin and Percocet PRN pain - Encourage OOB - Pelvic rest x 6 wks. Will need a f/u appt in 1wk for incision check. - Contraception: Would like Depo-Provera. Will plan to give tomorrow. No history of migraines. - Recommend post follow up in 1 wk - Anticipate D/C tomorrow 08/07. [email or web address] Ames. Enrico Braswell MD R2 Aug 06, 2016 09:20
[2016-08-06 20:09] VITALS: BP 137/74; PULSE 111; RESP 17; TEMP 98.4
[2016-08-07 04:00] VITALS: BP 130/72; PULSE 77; RESP 18; TEMP 98.8
[2016-08-07] MEDS: oxyCODONE/ACETAMINOPHEN 5 MG/325 MG TAB PO PRN ×2 (05:30→13:46)
[2016-08-07] MEDS: IBUPROFEN 600 MG TAB PO PRN ×2 (05:30→13:44)
[2016-08-07 08:00] VITALS: BP 117/71; PULSE 94; RESP 18; TEMP 98.8
--- NOTE | 2016-08-07 09:01 | HHI.DCPOC ---
Discharge Care Plan Diagnosis: (1) care following delivery Report Symptoms to Your Doctor -Temperate above 100.5 degrees -Redness, of incision or excessive or foul smelling drainage -Unusual pain or calf pain -Increased vaginal bleeding -Painful or difficulty urinating -Feelings of extreme sadness or anxiety after 2 weeks Goals to Promote Your Health * To prevent worsening of your condition and complications * To maintain your health at the optimal level Directions to Meet Your Goals Take your medications as prescribed Follow your dietary instruction Follow activity as directed Ensure plenty of rest for recovery Drink fluids for hydration Keep your appointments as scheduled Take your immunizations and boosters as scheduled If your symptoms worsen call your PCP, if no PCP go to Urgent Care Center or Emergency Room Smoking is Dangerous to Your Health. Avoid second hand smoke Call the 24-hour crisis hotline for domestic abuse at Peng Garcia MD R2 Aug 07, 2016 09:01
--- NOTE | 2016-08-07 09:01 | HHI.OB ---
Subjective Post Operative Day: 3 Remarks Ms. Iglesias is a 21 yo who is POD 3 from CS (08/04 at 1942). Patient afebrile stable vital signs overnight. Patient ambulating well. Patient breast-feeding and supplementing with bottle. Patient does not report shortness of breath, chest pain, or dysuria. Patient reports significant abdominal pain when she does not take medications, but states that it is controlled when taking Motrin/Percocet. Patient denies significant vaginal bleeding. Patient reports swelling of extremities falling vaccinations, but states this is resolved. Patient passing gas normally. Objective Vitals/I&O Vital Signs Date Time Temp Pulse Resp B/P Pulse Ox O2 Delivery O2 Flow Rate FiO2 08/07/16 08:00 98.8 94 18 117/71 08/07/16 04:00 98.8 77 18 130/72 08/06/16 23:18 18 08/06/16 20:09 98.4 111 17 137/74 Result Diagram: 08/06/16 0606 Objective Remarks GENERAL: Well-nourished, well-developed patient. CARDIOVASCULAR: Regular rate and rhythm without murmurs RESPIRATORY: CTAB, normal rate ABDOMEN/GI: Abdomen soft, non-tender. Incision: Bandage Clean, dry and intact. Fundus: Firm, non-tender slightly above umbilicus. GENITOURINARY: Light to moderate bleeding. EXTREMITIES: No cyanosis or edema, non-tender, without signs of DVT. Medications and IVs Current Medications Medications (Trade) Dose Ordered Sig/[place] Route Start Time Stop Time Status Last Admin (fentaNYL INJ) 50 mcg Q1H PRN IV PUSH 08/04/16 00:30 08/04/16 07:25 (fentaNYL INJ) 100 mcg Q1H PRN IV PUSH 08/04/16 00:30 08/04/16 09:14 Mineral Oil 10 ml 10 ml UNSCH PRN TOPICAL 08/04/16 00:30 (Pitocin 30 Units-NS 500 ml Premix) 500 ml @ 0 mls/hr TITRATE IV 08/04/16 08:15 08/04/16 09:13 (NS Flush) 2 ml BID IV FLUSH 08/04/16 21:00 (NS Flush) 2 ml UNSCH PRN IV FLUSH 08/04/16 20:15 (Mylicon Chew) 80 mg QID PRN PO 08/04/16 20:15 (Motrin) 600 mg Q6H PRN PO 08/04/16 20:15 08/07/16 05:30 (Percocet 5-325 Mg) 1 tab Q4H PRN PO 08/04/16 20:15 (Percocet 5-325 Mg) 2 tab Q4H PRN PO 08/04/16 20:15 08/07/16 05:30 (Zofran Inj) 4 mg Q6H PRN IV PUSH 08/04/16 20:15 Assessment/Plan Problem List: (1) Post term at 41 weeks gestation (2) care following delivery Assessment and Plan 21 yo who is POD 3 from CS (08/04 at 1942) - AFVSS - Continue routine care - Motrin and Percocet PRN pain - Encourage OOB - Pelvic rest x 6 wks. Will need a f/u appt in 1wk for incision check. - Recommend post follow up in 1 wk - Anticipate D/C today Anemia Impression: Drop in hemoglobin from 10.9 (08/03) --> 8.6 (08/05) --> 8.2 (08/06). Asymptomatic. -Will prescribe Ferrous sulfate 325mg BID on discharge Peng Garcia MD R2 Aug 07, 2016 09:01
[2016-08-07] MEDS ORDERED: IBUP-232 PO (09:03)
[2016-08-07] MEDS ORDERED: PERI8.6T PO (09:03)
[2016-08-07] MEDS ORDERED: FERR325T PO (09:03)
[2016-08-07] MEDS ORDERED: OXYC1TAB63 PO (09:03)
--- NOTE | 2016-08-07 11:32 | MP ---
cc: PRISCILLA MCNAMARA M.D. DATE OF SURGERY: 08/07/2016. PREOPERATIVE DIAGNOSIS: 1. A 41-week gestation. 2. Persistent occiput posterior presentation with failure to descend. POSTOPERATIVE DIAGNOSIS: 1. A 41-week gestation. 2. Persistent occiput posterior presentation with failure to descend. OPERATIVE PROCEDURE PERFORMED: Primary low transverse section without extension. SURGEON: Priscilla Mcnamara MD. ESTIMATED BLOOD LOSS: 600 cc. ANESTHETIC: An epidural. MEDICATIONS: Ancef 2 grams given preoperatively. COUNTS: Correct x3. DRAINS: Graham to gravity. COMPLICATIONS: No complications were noted. FINDINGS: 1. Normal uterus, tubes and ovaries. 2. Clear amniotic fluid. 3. male in occiput posterior presentation. Weight was 3810 grams, 8 pounds, 6.4 ounces born at 1941. 4. Hemostasis after the case. DESCRIPTION OF THE PROCEDURE IN DETAIL: The patient was taken back to the operating room and prepped and draped in the usual sterile fashion and placed in the dorsal supine position. After adequate anesthetic was obtained, a wedge was placed to her left side and a Pfannenstiel's incision was made in the skin and taken down to the fascia. The fascia was nicked in the midline and taken off the rectus muscles in the midline. The anterior peritoneum was entered and extended superiorly and inferiorly. The Riaz surgical retractor was placed. A transverse hysterotomy incision was made and bluntly extended bilaterally. The infant's head was delivered into the operative field. Nuchal cord x1 was reduced and the rest of the body was delivered and then handed off to the resuscitation team for subsequent care after a delayed cord clamping of 45 seconds. The placenta was delivered intact and the endometrial cavity was curetted with a moist laparotomy sponge. The hysterotomy incision was repaired using a running locking #1 chromic suture with good hemostasis at closure. The gutters were rendered free of all blood and clot material. The fascia was closed with #1 PDS suture in a running fashion. The subcuticular tissue was made hemostatic with the bovie. The skin was closed both with a 3-0 Monocryl. Steri-Strips were placed. She was taken back to the recovery room in good condition. MD AMINATA Evans/TANESHA /8:17 PM /11:24 AM
[2016-08-09 10:46] LABS: BATH SALTS (MDPV) UR NEG (NEG); ECSTASY (MDMA) UR NEG (NEG); HEROIN (6-ACETYLMORPHINE) UR NEG (NEG); K2 SPICE UR NEG (NEG); OBMETHADONE UR NEG (NEG); PHENCYCLIDINE URINE NEG (NEG)
[2016-08-09 10:47] LABS: GABAPENTIN UR NEG (NEG); HYDROMORPHONE U NEG (NEG); OXYCODONE (PERCODAN) NEG (NEG)
== END 2016-08-07 18:24 | disposition home or self-care (01) | DRG 766 ==
LOC: H2EB 22:14 → H1EA 08-04 22:14
PROVIDERS: ADMIT Obstetrics & Gynecology; ATTEND Obstetrics & Gynecology
PROC: 10D00Z1 Extraction of Products of Conception, Low, Open Approach (ICD-10-PCS; principal; 2016-08-04)
PROC: 3E0P7GC Introduction of Other Therapeutic Substance into Female Reproductive, Via Natural or Artificial Opening (ICD-10-PCS; 2016-08-04)
PROC: 3E0S3CZ (ICD-10-PCS; 2016-08-04)
PROC: 00HU33Z Insertion of Infusion Device into Spinal Canal, Percutaneous Approach (ICD-10-PCS; 2016-08-04)
DX: O64.0XX0 Obstructed labor due to incomplete rotation of fetal head, not applicable or unspecified (principal); D64.9 Anemia, unspecified; O76 Abnormality in fetal heart rate and rhythm complicating labor and delivery; O90.81 Anemia of the puerperium; O48.0 Post-term pregnancy; Z37.0 Single live birth; Z3A.41 41 weeks gestation of pregnancy
CPT/HCPCS: 59025; 80307; 80348; 81001; 84112; 85025; 85027; 86900; 86901; 90715; G0480; G0481; J0690; J1050; J1885; J2274; J2590; J3010; J7120